=== PATIENT | female | born 1955 | race Caucasian/White ===

== ENCOUNTER 2017-04-21 23:51 | Inpatient (IN) ==
[2017-04-21] MEDS ORDERED: IOPAMIDOL 100 ML BOTTLE IV ONE (23:52)
--- NOTE | 2017-04-22 00:08 | Emergency Department Note ---
Abdominal Pain HPI - General Chief Complaint: Abdominal Pain Stated Complaint: abdominal pain Time Seen by Provider: 04/22/17 00:03 Source: family Mode of arrival: ambulatory Limitations: no limitations - History of Present Illness HPI Narrative: 61-year-old female with a history of lower abdominal pain particular in the suprapubic region to the left. Patient denies any urgency frequency or dysuria however. Been running a slight temperature of 99. Appetite has been normal she has had no history of vomiting or diarrhea or constipation issues though she states she did take a stool softener. Had two loose stools yesterday. Has no history of right lower quadrant pain as had a hysterectomy. has had some nauseA. still has her appendix and gallbladder. pain is diffuse but lower abdomen. no guarding or rebound - Related Data Previous Rx's Medication Instructions Recorded bupropion HCl 75 mg tablet 150 mg PO BID #60 tab 01/20/16 omeprazole 40 mg capsule,delayed 40 mg PO QDAY #30 cap 01/20/16 release hydroxyzine HCl 25 mg tablet 25 mg PO TID-QID PRN #30 tab 07/07/16 meloxicam 7.5 mg tablet 7.5 mg PO QDAY #90 tab 01/19/17 baclofen 20 mg tablet 20 mg PO TID #90 tab 03/17/17 Allergies Allergy/AdvReac Type Severity Reaction Status Date / Time From [facility] AdvReac Severe Anaphylaxis Uncoded 01/31/17 08:58 Review of Systems All systems ED: reviewed and negative except as stated. Constitutional: Denies: fever, chills Eyes: Denies: eye pain ENT ED: Denies: ear pain Cardiovascular: Denies: chest pain Respiratory: Denies: shortness of breath, cough Gastrointestinal: Reports: as per HPI, abdominal pain, nausea. Denies: vomiting , diarrhea, constipation, hematochezia, melena, hematemesis, acid reflux Genitourinary: Reports: as per HPI. Denies: dysuria, urgency, frequency, hematuria Abdominal Pain PMH - Past Medical History Medical history: Reports: hyperlipidemia Surgical history ED: Reports: herniorrhaphy, ELVIRA/BSO, other (Couple tunnel) - Social History Smoking status: Current every day smoker Alcohol use: Reports: None Drug use: Reports: none Physical Exam Limitations: no limitations General appearance: alert, anxious Head: atraumatic, normocephalic Eye: Present: normal appearance, PERRL ENT: normal exam, normal oropharynx, mucous membranes moist Neck: Present: normal inspection, full ROM, trachea midline Chest: Present: normal inspection, symmetric chest wall rise. Absent: tenderness Respiratory: Present: normal lung sounds bilaterally. Absent: respiratory distress, wheezes, stridor Cardiovascular: Present: regular rate, normal rhythm. Absent: bradycardia, tachycardia Abdominal: Present: soft, tenderness, normal bowel sounds. Absent: distention, guarding, rebound, rigidity Abdominal tenderness: Present: LLQ, suprapubic Rectal: Present: normal rectal tone Extremities: Present: normal inspection, full ROM. Absent: tenderness Back: Present: normal inspection, full ROM. Absent: tenderness Neurological: Present: alert, oriented X3, CN II-XII intact Psychiatric: Present: normal affect, normal mood Course Vital Signs Temperature 99.5 F H 04/21/17 23:51 Pulse Rate 113 H 04/21/17 23:51 Respiratory Rate 19 04/21/17 23:51 Blood Pressure 109/84 04/21/17 23:51 Pulse Oximetry (%) 96 04/21/17 23:51 Temperature 99.5 F H 04/21/17 23:51 Pulse Rate 82 04/22/17 01:01 Respiratory Rate 19 04/21/17 23:51 Blood Pressure 108/72 04/22/17 01:01 Pulse Oximetry (%) 95 04/22/17 01:01 Abdominal Pain - MDM Narrative Medical decision making narrative: temp 99.5, wbc elevaed 12,100, 72 seg 2 bands.. ua does show 17 wbc. elevaed liver funstion test 0.5, bilirubin 1.5 AST 69, ALT 85, alk phosphatase 151 T of the abdomen reveals contained perforated loop of small bowel left lower quadrant with associated abscess measuring 3 cm uncomplicated colonic diverticuli Domenic contacted patient to be started on Zosyn and Flagyl and admitted to Dr. Sheth's service to be kept n.p.o. - Lab Data Result diagrams: 04/22/17 00:16 04/22/17 00:16 Lab Results 04/22/17 04/22/17 04/22/17 Range/Units 00:06 00:16 00:16 WBC 12.1 H (4.5-11.0) K/mcL RBC 4.23 (4.00-5.20) M/mcL Hgb 13.4 (12.0-15.0) g/dL Hct 39.3 (36.0-48.0) % MCV 92.9 (80.0-100.0) fL MCH 31.6 (26.0-34.0) pg MCHC 34.1 (31.0-36.0) g/dL RDW 12.7 (11.5-14.5) % Plt Count 228 (140-440) K/mcL MPV 9.4 (7.4-10.4) fL Total Counted 100 Seg Neutrophils % 72 (38-78) % Band Neutrophils % 1 (0-10) % Lymphocytes % 20 (15-49) % Monocytes % (Manual) 7 (1-12) % Platelet Estimate Normal (NORMAL) RBC Morphology Normal (NORMAL) Sodium 137 (133-145) mmol/L Potassium 3.7 (3.3-5.1) mmol/L Chloride 99 (96-108) mmol/L Carbon Dioxide 22 (22-30) mmol/L Anion Gap 16.0 (8-16) BUN 16 (8-23) mg/dl Creatinine 0.5 L (0.6-1.1) mg/dl GFR Calculation 104 Glucose 121 H (70-105) mg/dL Calcium 8.8 (8.6-10.4) mg/dl Total Bilirubin 1.5 H (0.0-1.0) mg/dL AST 69 H (0-37) U/l ALT 85 H (0-40) U/l Alkaline Phosphatase 151 H (39-117) U/L Total Protein 7.2 (5.9-8.4) gm/dL Albumin 3.9 (3.2-5.2) gm/dL Globulin 3.3 (2.2-3.7) gm/dL Albumin/Globulin Ratio 1.2 (1.0-2.3) Lipase 39 (7-60) U/L Urine Color [place] Urine Appearance Hazy Urine pH 6.0 (5.0-9.0) Ur Specific [place] 1.024 (1.000-1.035) Urine Protein 30 A (NEG) mg/dL Urine Glucose (UA) Negative (NEG) mg/dL Urine Ketones 20 A (NEG) mg/dL Urine Occult Blood 0.2 A (<0.03) mg/dL Urine Nitrate Neg (NEG) Urine Bilirubin 2.0 A (NEG) mg/dL Urine Ictotest Pos A (NEG) Urine Urobilinogen 4.0 A (NEG) mg/dL Ur Leukocyte Esterase 75 A (NEG) /uL Urine RBC 7 H (0-1) /hpf Urine WBC 19 H (0-4) /hpf Ur Squamous Epith Cells 5 H (0-4) /hpf Urine Bacteria Many A (0) /hpf Urine Mucus Many A (0) /hpf Ur Culture Indicated? No Disposition Pt seen by INSTRUMENT INSTALLER/PA only: No Clinical Impression: Diverticulitis of small intestine with perforation and abscess Qualifiers: Diverticulitis bleeding: without bleeding Qualified Code(s): K57.00 - Diverticulitis of small intestine with perforation and abscess without bleeding Disposition: Xfer As Inpt ([facility]) Condition: Serious Referrals: Michelle Otto DO [Primary Care Provider] - Time of Disposition: 03:21
[2017-04-22 00:58] LABS: Mean Cell Volume 92.9 fL (80.0-100.0); Mean Corpuscular HGB Conc 34.1 g/dL (31.0-36.0); Mean Corpuscular Hemoglobin 31.6 pg (26.0-34.0); Platelet Count 228 K/mcL (140-440); RBC 4.23 M/mcL (4.00-5.20); Red Cell Distribution Width 12.7 % (11.5-14.5)
[2017-04-22 01:07] LABS: Appearance,Urine HAZY; Bacteria,Urine MANY /hpf (0); Color,Urine ORANGE; Glucose,Urine (UA) NEGATIVE (NEG); Leukocyte Esterase,Urine 75 /uL (NEG); Mucus,Urine MANY /hpf (0); Nitrate,Urine NEG (NEG); Protein,Urine 30 mg/dL (NEG); Specific Gravity,Urine 1.024 (1.000-1.035); Urine Blood 0.2 mg/dL (<0.03); Urine RBC 7 /hpf (0-1); Urine Squamous Epithelial Cell 5 /hpf (0-4); Urine WBC 19 /hpf (0-4)
[2017-04-22 01:08] LABS: Ictotest,Urine POS (NEG)
[2017-04-22 01:10] LABS: ALT/SGPT 85 U/l (0-40); Albumin 3.9 gm/dL (3.2-5.2); Albumin/Globulin Ratio 1.2 (1.0-2.3); Alkaline Phosphatase 151 U/L (39-117); Blood Urea Nitrogen 16 mg/dl (8-23); Lipase 39 U/L (7-60)
[2017-04-22 01:59] LABS: Band Neutrophils % 1 % (0-10); Lymphocytes % 20 % (15-49); Monocytes % (Manual) 7 % (1-12); Platelet Estimate NORMAL (NORMAL); RBC Morphology NORMAL (NORMAL); Segmented Neutrophils % 72 % (38-78)
[2017-04-22] MEDS ORDERED: PIPERACILLIN SODIUM/TAZOBACTAM 3.375 GM in DEXTROSE 5% IN WATER 50 ML IV ONE (02:52)
[2017-04-22] MEDS ORDERED: cefTRIAXone 1 GM VIAL IV ONE (02:52)
[2017-04-22] MEDS ORDERED: ONDANSETRON 4 MG/2 ML VIAL IV ONE (02:53)
[2017-04-22] MEDS ORDERED: HYDROmorphone 2 MG/ML SYRINGE IV PRN (02:53)
[2017-04-22] MEDS ORDERED: metroNIDAZOLE 500 MG/100 ML BAG IV ONE (03:01)
[2017-04-22] MEDS ORDERED: PIPERACILLIN SODIUM/TAZOBACTAM 3.375 GM VIAL IV ONE (03:10)
[2017-04-22] MEDS ORDERED: ONDANSETRON 4 MG/2 ML VIAL IV PRN (03:23)
[2017-04-22] MEDS: 0.9 % SODIUM CHLORIDE 1,000 ML IV SCH ×2 (04:03→13:04)
[2017-04-22 04:52] LABS: Hepatitis A Antibody IgM NON REACTIVE (NEGATIVE); Hepatitis B Core IgM NON REACTIVE (NEGATIVE); Hepatitis B Surface Antigen NEGATIVE (NEGATIVE); Hepatitis C Virus Antibody NON REACTIVE (NEGATIVE)
[2017-04-22] MEDS: HYDROmorphone 2 MG/ML SYRINGE IV PRN ×3 (07:03→23:12)
--- NOTE | 2017-04-22 08:34 | Cat Scan Report ---
CLINICAL INFORMATION: Abdominal pain and distention COMPARISON: None. TECHNIQUE: Following enteric contrast, 80 cc of Isovue-300 were injected intravenously, and 60 seconds later, 0.625 mm helical slices were obtained from the mid heart through the subtrochanteric regions. Following reconstruction, 2.5 mm sagittal, coronal and axial reformatted images were processed and reviewed at bone, lung and soft tissue windows. Five minutes later, 0.625 mm helical slices were obtained from the mid heart through the kidneys and viewed at soft tissue windows.The exam was performed using radiation dose optimization techniques including, but not limited to, automated exposure control, adjustment of the mA and/or kV according to patient size and use Images should the pelvis show hysterectomy changes Of iterative reconstruction technique. FINDINGS: Lung bases are clear. There are no effusions. The visualized heart is grossly normal. Images through the abdomen show minimal fatty change within the liver. There is a 14 mm vague low-attenuation lesion in the anterior segment of the right hepatic lobe (image 29) on the portal venous phase which becomes isointense on five minute delayed images. Findings are compatible with a benign hemangioma. No significant focal hepatic lesion. The gallbladder and bile ducts, both kidneys, adrenal glands, spleen, pancreas and aorta including aortic branches are normal in size, configuration and attenuation without focal lesion. Images through the pelvis show hysterectomy/oophorectomy changes. Urinary bladder is normal. There is a 4 cm abscess in the right false pelvis resulting from a focal perforation of a distal small bowel loop. It contains fluid and gas with mild surrounding inflammation. No foreign body identified. The remainder of the small bowel, appendix and colon are unremarkable with exception of a few sigmoid diverticuli. Bone windows show no osseous abnormality. IMPRESSION: 1. 4 cm abscess resulting from a contained focal perforation of a distal small bowel loop in the left false pelvis. Suggest: CT-guided percutaneous drain placement as part of " cool down " therapy prior to surgery 2. 14 mm benign hemangioma - right hepatic lobe Interpreted and Authenticated by: Raj Lang 04/22/17
--- NOTE | 2017-04-22 11:15 | General Surg History&Physical ---
History of Present Illness Patient information: Note initiated : 04/22/17 at 11:10 am Service Date, if different from initiated Date: [] Patient: Stephanie Potter a 61 y/o F admitted on 04/22/17 for abdominal pain. Chief Complaint: [Chronic lower abdominal pain and epigastric pain with dark urine and elevated LFTs] HPI: Ms. Potter is a 61 year old F who presents to the emergency room with a 5 day history of lower abdominal pain. The pain was gradual in onset and increased in intensity. It was diffusely in the entire lower abdomen and hypogastric region. She had increasing gas pains with diarrhea. She had chills but denies fever or sweats. She had increasing nausea and vomiting prior to coming to the emergency room. She has not had similar pain. The patient also has noted dark urine over the past 3 days with some epigastric pain early satiety and anorexia. She has not had some specific right upper quadrant pain. Her LFTs are mildly elevated as is her bilirubin. CT of the abdomen shows normal upper abdomen including gallbladder liver however there is a 4.5 cm abscess along the mesenteric border of a loop of small bowel. The abscess contains gas and liquid debris. It does not appear to be contiguous with a loop of colon and the radiologist does not feel that she has diverticulitis.. This is felt to be related to suspected small bowel perforation with abscess formation. The patient does not have any prior history of any type of intestinal disease. Review of Systems - Constitutional anorexia, fatigue, malaise, no weakness, no weight loss - EENT Nose, mouth and throat: headache(s) (Is some medicines stoma working as is is admitted), no dysphagia, no throat swelling, no tongue swelling - Cardiovascular diaphoresis, no chest pain, no edema, no palpatations, no pedal edema, no syncope - Respiratory no cough, no wheezing, no chest congestion - Gastrointestinal abdominal pain, bloating, change in bowel habits, early satiety, fecal incontinence, loose stools, nausea, vomiting, no constipation - Genitourinary Genitourinary: pelvic pain, urinary incontinence, no dysuria - Musculoskeletal arthralgias, joint swelling, myalgias - Integumentary no changing lesions, no new lesions, no pruritus, no rash - Neurological abnormal movements, confusion, convulsions, dizziness, headache(s), weakness, no abnormal gait, no paresthesias, no syncope - Psychiatric anxiety, no depression, no irritability - Endocrine fatigue, no palpitations, no polydipsia, no polyphagia, no polyuria - Hematologic/Lymphatic no easy bleeding, no easy bruising, no lymphadenopathy - Allergic/Immunologic no tongue swelling, no throat swelling, no uticaria, no wheezing, no lip swelling Past History Past medical history: Chronic anxiety disorder History of fecal incontinence Gastroesophageal reflux disease Chronic joint pain Past surgical history: Abdominal hysterectomy Carpal tunnel surgery Past family history: Other history not known Degenerative arthritis Past social history: Unmarried Everyday smoker of cigarettes Denies alcohol use Denies drug use Medications and Allergies Home Medications Medication Instructions Recorded Confirmed Type bupropion HCl 75 mg tablet 150 mg PO BID #60 tab 01/20/16 04/22/17 Rx omeprazole 40 mg capsule,delayed 40 mg PO QDAY #30 cap 01/20/16 04/22/17 Rx release hydroxyzine HCl 25 mg tablet 25 mg PO TID-QID PRN #30 tab 07/07/16 04/22/17 Rx meloxicam 7.5 mg tablet 7.5 mg PO QDAY #90 tab 01/19/17 04/22/17 Rx baclofen 20 mg tablet 20 mg PO TID #90 tab 03/17/17 04/22/17 Rx Allergies Allergy/AdvReac Type Severity Reaction Status Date / Time moxifloxacin [From Avelox] Allergy Severe Anaphylaxis Verified 04/22/17 07:09 Exam Temp Pulse Resp BP Pulse Ox 98.2 F 77 18 93/58 95 04/22/17 07:09 04/22/17 07:09 04/22/17 07:09 04/22/17 07:09 04/22/17 07:09 - General physical appearance well developed, well nourished, no distress - Eyes PERRL, normal ocular movement, icteric - ENT normal pinna, normal nares, normal mucosa, no hearing loss, no congestion, dentures, other (Edentulous) - Head Head exam IM: Present: atraumatic, normal inspection, normocephalic - Neck no masses, no bruits, trachea midline, no lymphadectomy, no venous distension - Cardiovascular Cardiovascular exam IM: Present: normal rate and rhythm, RRR, +S1, +S2. Absent : gallop, JVD - Respiratory normal expansion, normal respiratory effort, clear to percussion, clear to auscultation - Abdomen Abdomen: Present: soft, tender (Mild distention; epigastric and bilateral upper quadrant pain; tenderness with guarding and rebound left lower quadrant and suprapubic area), bowel sounds Hernia: Present: none - Genitourinary Present: normal external genitalia - Rectum Rectum: Present: no hemorrhoids, no tenderness, no masses, no bleeding, other ( Poor anal tone) - Integumentary Present: no rash, no growths, no abnormal pigmentation - Neurologic Present: normal coordination, normal sensation - Musculoskeletal Present: normal gait, normal posture - Psychiatric Present: oriented to time, oriented to person, oriented to place, speech is normal, memory intact Assessment and Plan (1) Perforation of small intestine Antibiotic coverage with Zosyn and Flagyl IV rehydration Probable early operation Status: Acute (2) Left lower quadrant abdominal abscess Status: Acute (3) Epigastric abdominal pain of unknown etiology Upper abdominal ultrasound to evaluate for gallbladder disease Status: Acute (4) Anxiety IV Ativan until oral medications can be restarted Status: Chronic (5) Incontinence of feces Status: Chronic Qualifiers: Fecal incontinence type: unspecified Qualified Code(s): R15.9 - Full incontinence of feces
[2017-04-22] MEDS: metroNIDAZOLE 500 MG/100 ML BAG IV SCH ×2 (11:25→17:28)
--- NOTE | 2017-04-22 11:57 | XRay Report ---
CLINICAL INFORMATION: Preop COMPARISON: None. FINDINGS: The heart size, mediastinum and pulmonary vessels are unremarkable. The lungs are clear. There are no effusions. The bones and soft tissues are within normal limits. IMPRESSION: Normal chest. Interpreted and Authenticated by: Raj Lang 04/22/17
--- NOTE | 2017-04-22 12:13 | Ultrasound Report ---
CLINICAL INFORMATION: Elevated LFTs and bilirubin COMPARISON: Abdominal CT performed earlier in the day 04/22/2017. FINDINGS: Liver is normal in size and diffusely hyperechoic compatible with diffuse fatty change. There is a 14 mm hyperechoic lesion in the right hepatic lobe compatible benign hemangioma - this was also seen on CT. There are two stones in the gallbladder, 1.7 cm and 1.4 cm, respectively. Gallbladder wall is normal thickness - 2 mm. Common bile duct is normal - 4 mm IMPRESSION: 1. Cholelithiasis. Gallbladder and bile ducts are otherwise normal 2. 14 mm hemangioma right hepatic lobe also seen on CT 3. Hyperechoic liver compatible with diffuse fatty change is also seen on CT Interpreted and Authenticated by: Raj Lang 04/22/17
[2017-04-22] MEDS: NICOTINE 21 MG PATCH TOPICAL SCH (13:04)
[2017-04-22] MEDS: PIPERACILLIN SODIUM/TAZOBACTAM 3.375 GM in DEXTROSE 5% IN WATER 50 ML IV SCH ×2 (13:04→19:14)
[2017-04-22] MEDS: PANTOPRAZOLE 40 MG VIAL IV SCH (17:02)
[2017-04-23] MEDS: metroNIDAZOLE 500 MG/100 ML BAG IV SCH ×5 (00:14→18:19)
[2017-04-23] MEDS: 0.9 % SODIUM CHLORIDE 1,000 ML IV SCH ×5 (00:53→22:46)
[2017-04-23] MEDS: PIPERACILLIN SODIUM/TAZOBACTAM 3.375 GM in DEXTROSE 5% IN WATER 50 ML IV SCH ×4 (01:30→19:25)
[2017-04-23 05:28] LABS: Basophils # (Auto) 0 K/mcL (0.0-0.3); Basophils % (Auto) 0.5 % (0.0-2.0); Eosinophils # (Auto) 0.2 K/mcL (0.0-0.7); Eosinophils % (Auto) 3.2 % (0.0-7.0); Granulocytes % (Auto) 56.4 % (38.0-78.0); Lymphocytes # (Auto) 1.8 K/mcL (1.5-4.8); Lymphocytes % (Auto) 32.5 % (15.5-49.0); Mean Cell Volume 93.3 fL (80.0-100.0); Mean Corpuscular HGB Conc 33.9 g/dL (31.0-36.0); Mean Corpuscular Hemoglobin 31.7 pg (26.0-34.0); Monocytes # (Auto) 0.4 K/mcL (0.1-0.9); Monocytes % (Auto) 7.4 % (1.0-12.0); Platelet Count 222 K/mcL (140-440); RBC 3.65 M/mcL (4.00-5.20)
[2017-04-23 05:49] LABS: ALT/SGPT 51 U/l (0-40); Albumin 2.7 gm/dL (3.2-5.2); Albumin/Globulin Ratio 0.9 (1.0-2.3); Alkaline Phosphatase 115 U/L (39-117); Bilirubin,Direct 0.4 mg/dL (0.0-0.3); Blood Urea Nitrogen 17 mg/dl (8-23); Gamma Glutamyl Transpeptidase 144 U/L (5-36); Magnesium 1.8 mg/dL (1.6-2.5); Uric Acid 3.2 mg/dL (2.5-8.0)
[2017-04-23] MEDS: PANTOPRAZOLE 40 MG VIAL IV SCH ×2 (07:10→17:07)
[2017-04-23] MEDS ORDERED: IPRATROPIUM/ALBUTEROL 3 ML AMPUL.NEB NEB ONE (07:34)
[2017-04-23] MEDS ORDERED: fentaNYL 250 MCG/5 ML VIAL IV ONE (07:58)
[2017-04-23] MEDS ORDERED: PHENYLEPHRINE 10 MG/ML VIAL ONE (07:58)
[2017-04-23] MEDS ORDERED: ONDANSETRON 4 MG/2 ML VIAL ONE (07:58)
[2017-04-23] MEDS ORDERED: DEXAMETHASONE 10 MG/ML VIAL ONE (07:58)
[2017-04-23] MEDS ORDERED: ROCURONIUM 10 MG/ML ML IV ONE (07:58)
[2017-04-23] MEDS ORDERED: NEOSTIGMINE 1 MG/ML VIAL IV ONE (07:58)
[2017-04-23] MEDS ORDERED: PROPOFOL 200 MG/20 ML VIAL IV ONE (07:58)
[2017-04-23] MEDS ORDERED: GLYCOPYRROLATE 0.2 MG/ML VIAL IV ONE (07:58)
[2017-04-23] MEDS ORDERED: LIDOCAINE HCL/PF 100 MG/5 ML SYRINGE IV ONE (07:58)
[2017-04-23] MEDS ORDERED: MIDAZOLAM 2 MG/2 ML VIAL ONE (07:58)
[2017-04-23] MEDS ORDERED: SUCCINYLCHOLINE 20 MG/ML ML IV ONE (07:58)
[2017-04-23] MEDS ORDERED: ALBUMIN HUMAN 12.5 GM/50 ML BAG IV ONE (08:00)
[2017-04-23] MEDS ORDERED: FLU VACC QS2017-18 36MOS UP/PF 60 MCG/0.5 ML SYRINGE IM ONE (10:00)
[2017-04-23] MEDS ORDERED: NICOTINE 21 MG PATCH TOPICAL SCH (10:00)
[2017-04-23] MEDS ORDERED: diphenhydrAMINE 50 MG/ML VIAL IV PRN (10:01)
[2017-04-23] MEDS ORDERED: NALOXONE HCL 0.4 MG/ML VIAL IV PRN (10:01)
[2017-04-23] MEDS ORDERED: IPRATROPIUM/ALBUTEROL 3 ML AMPUL.NEB NEB PRN (10:01)
[2017-04-23] MEDS ORDERED: PROMETHAZINE 25 MG/ML VIAL IV PRN (10:01)
[2017-04-23] MEDS ORDERED: METOPROLOL TARTRATE 5 MG/5 ML VIAL IV PRN (10:01)
[2017-04-23] MEDS ORDERED: ONDANSETRON 4 MG/2 ML VIAL IV PRN (10:01)
[2017-04-23] MEDS ORDERED: FLUMAZENIL 0.1 MG/ML ML IV PRN (10:01)
[2017-04-23] MEDS ORDERED: ATROPINE SULFATE 0.4 MG/ML VIAL IV PRN (10:01)
[2017-04-23] MEDS ORDERED: MEPERIDINE 25 MG/ML SYRINGE IV PRN (10:01)
[2017-04-23] MEDS ORDERED: ePHEDrine 50 MG/ML AMPUL IV PRN (10:01)
[2017-04-23] MEDS ORDERED: METHOCARBAMOL 1,000 MG/10 ML VIAL IV PRN (10:01)
[2017-04-23] MEDS ORDERED: HYDROmorphone 2 MG/ML SYRINGE IV PRN (10:01)
[2017-04-23] MEDS ORDERED: LACTATED RINGERS 1,000 ML IV SCH (10:15)
--- NOTE | 2017-04-23 10:52 | Brief Operative Note ---
Date of procedure: 04/23/17 Pre-op diagnosis: cholelithiasis with cholecystitis; small bowel perforation with abscess Post-op diagnosis: other (cholelithiasis with cholecystitis;necrosis of mesenteric border of small bowel with perforation and cintained interloop abscess) Procedure: laparoscopic cholecystectomy diagnostic pelvic laparoscopy open laparotomy with small bowel resection Grafts/Implants: No Anesthesia: GETA Findings: acute and chronic cholecystitis;large perforation of single loop of mid small bowel with contained interloop abscess Complications: none Surgeon: Eamon Sheth Estimated blood loss (cc): 20 Specimens Removed/Pathology: other (gallbladder; small bowel segment) Condition: stable Disposition: PACU
[2017-04-23] MEDS ORDERED: LORazepam 2 MG/ML VIAL IV PRN (11:03)
[2017-04-23] MEDS: fentaNYL 100 MCG/2 ML VIAL IV PRN ×4 (11:12→11:33)
[2017-04-23] MEDS ORDERED: ACETAMINOPHEN 1,000 MG/100 ML BOTTLE IV SCH (12:00)
[2017-04-23] MEDS: HYDROmorphone 2 MG/ML SYRINGE IV PRN ×5 (12:15→22:21)
[2017-04-23] MEDS: NICOTINE 21 MG PATCH TOPICAL SCH (13:56)
[2017-04-23] MEDS: ACETAMINOPHEN 1,000 MG/100 ML BOTTLE IV SCH (17:07)
[2017-04-24] MEDS: ACETAMINOPHEN 1,000 MG/100 ML BOTTLE IV SCH ×5 (00:10→23:23)
[2017-04-24] MEDS: PIPERACILLIN SODIUM/TAZOBACTAM 3.375 GM in DEXTROSE 5% IN WATER 50 ML IV SCH ×4 (01:16→20:04)
[2017-04-24] MEDS: 0.9 % SODIUM CHLORIDE 1,000 ML IV SCH ×4 (02:33→20:05)
[2017-04-24] MEDS: HYDROmorphone 2 MG/ML SYRINGE IV PRN ×3 (04:33→17:07)
[2017-04-24] MEDS: ONDANSETRON 4 MG/2 ML VIAL IV PRN ×2 (04:44→17:06)
[2017-04-24 05:25] LABS: Basophils # (Auto) 0 K/mcL (0.0-0.3); Basophils % (Auto) 0 % (0.0-2.0); Eosinophils # (Auto) 0 K/mcL (0.0-0.7); Eosinophils % (Auto) 0.4 % (0.0-7.0); Granulocytes % (Auto) 82.8 % (38.0-78.0); Lymphocytes # (Auto) 1.3 K/mcL (1.5-4.8); Lymphocytes % (Auto) 11.2 % (15.5-49.0); Mean Cell Volume 94.1 fL (80.0-100.0); Monocytes # (Auto) 0.7 K/mcL (0.1-0.9); Monocytes % (Auto) 5.6 % (1.0-12.0); Platelet Count 253 K/mcL (140-440); RBC 3.77 M/mcL (4.00-5.20); Red Cell Distribution Width 13.1 % (11.5-14.5)
[2017-04-24] MEDS: metroNIDAZOLE 500 MG/100 ML BAG IV SCH ×5 (05:51→23:23)
[2017-04-24 05:52] LABS: ALT/SGPT 43 U/l (0-40); Albumin/Globulin Ratio 1.1 (1.0-2.3); Alkaline Phosphatase 98 U/L (39-117); Bilirubin,Direct 0.3 mg/dL (0.0-0.3); Blood Urea Nitrogen 8 mg/dl (8-23); Gamma Glutamyl Transpeptidase 133 U/L (5-36); Magnesium 1.7 mg/dL (1.6-2.5); Uric Acid 2.7 mg/dL (2.5-8.0)
[2017-04-24] MEDS: PANTOPRAZOLE 40 MG VIAL IV SCH ×2 (07:55→17:22)
--- NOTE | 2017-04-24 17:12 | General Surgery Progress Note ---
Subjective Patient reports: feels better, pain is less, flatus, no bowel movement, afebrile Narrative: Note initiated : 04/24/17 at 5:10 pm Service Date, if different from initiated Date: [] Patient: Stephanie Potter 61 y/o F admitted on 04/22/17 for Abdominal Pain/ Perforation of Small Intestine. Chief Complaint: [ patient is doing well. She denies nausea. She states that she has had flatus. She is afebrile. Her white blood count is 11.] Objective Temp Pulse Resp BP Pulse Ox 97.5 F 62 16 122/75 92 04/24/17 15:44 04/24/17 07:29 04/24/17 15:44 04/24/17 15:44 04/24/17 15:44 - Additional Data Intake & Output - Last 24 hours: Intake & Output 04/22/17 04/23/17 04/24/17 04/25/17 05:59 05:59 05:59 05:59 Intake Total 100 / 100 2577 / 2577 1800 / 1800 [id number] Output Total 250 / 250 550 / 550 2100 / 2100 Balance -150 / -150 2026 -300 / -300 1829 Weight 144 lb 144 lb 144 lb - General physical appearance well developed, well nourished, no distress, severe distress, moderate pain - Eyes PERRL, normal ocular movement - ENT normal pinna, normal nares, normal mucosa, no hearing loss, no congestion - Neck no masses, no bruits, trachea midline, no lymphadectomy, no venous distension - Respiratory normal expansion, normal respiratory effort, clear to percussion, clear to auscultation - Cardiovascular Cardiovascular exam: Present: normal rate and rhythm, RRR, +S1, +S2. Absent: JVD - Abdomen tender, surgical scars (Surgical incisions are unremarkable; she has mild tenderness of her lower abdomen; good active bowel sounds) - Integumentary no rash, no growths, no abnormal pigmentation - Neurologic normal coordination, normal sensation - Musculoskeletal normal gait, normal posture - Psychiatric oriented to time, oriented to person, oriented to place, speech is normal, memory intact - Labs 04/24/17 04:27 04/24/17 04:27 Diabetes panel 04/24/17 Range/Units 04:27 Sodium 141 (133-145) mmol/L Potassium 3.9 (3.3-5.1) mmol/L Chloride 105 (96-108) mmol/L Carbon Dioxide 22 (22-30) mmol/L BUN 8 (8-23) mg/dl Creatinine 0.4 L (0.6-1.1) mg/dl Glucose 93 (70-105) mg/dL Calcium 8.2 L (8.6-10.4) mg/dl AST 34 (0-37) U/l ALT 43 H (0-40) U/l Alkaline Phosphatase 98 (39-117) U/L Total Protein 5.8 L (5.9-8.4) gm/dL Albumin 3.0 L (3.2-5.2) gm/dL Triglycerides 45 (<150) mg/dl Calcium panel 04/24/17 Range/Units 04:27 Calcium 8.2 L (8.6-10.4) mg/dl Phosphorus 3.4 (2.7-4.5) mg/dL Albumin 3.0 L (3.2-5.2) gm/dL Pituitary panel 04/24/17 Range/Units 04:27 Sodium 141 (133-145) mmol/L Potassium 3.9 (3.3-5.1) mmol/L Chloride 105 (96-108) mmol/L Carbon Dioxide 22 (22-30) mmol/L BUN 8 (8-23) mg/dl Creatinine 0.4 L (0.6-1.1) mg/dl Glucose 93 (70-105) mg/dL Calcium 8.2 L (8.6-10.4) mg/dl Adrenal panel 04/24/17 Range/Units 04:27 Sodium 141 (133-145) mmol/L Potassium 3.9 (3.3-5.1) mmol/L Chloride 105 (96-108) mmol/L Carbon Dioxide 22 (22-30) mmol/L BUN 8 (8-23) mg/dl Creatinine 0.4 L (0.6-1.1) mg/dl Glucose 93 (70-105) mg/dL Calcium 8.2 L (8.6-10.4) mg/dl Total Bilirubin 0.6 (0.0-1.0) mg/dL AST 34 (0-37) U/l ALT 43 H (0-40) U/l Alkaline Phosphatase 98 (39-117) U/L Total Protein 5.8 L (5.9-8.4) gm/dL Albumin 3.0 L (3.2-5.2) gm/dL Assessment and Plan (1) Perforation of small intestine Status: Acute Assessment and plan: We will continue present therapy Nasogastric tube to be continued until to protect her anastomosis Current Visit: Yes (2) Anxiety Status: Chronic Current Visit: No (3) Incontinence of feces Status: Chronic Current Visit: No (4) Cholelithiasis and acute cholecystitis without obstruction Status: Acute Current Visit: Yes - Time Spent With Patient Total time spent is greater than 50% in coordination of care (as documented) at patient's floor/unit and/or counseling patient:
[2017-04-25] MEDS: PIPERACILLIN SODIUM/TAZOBACTAM 3.375 GM in DEXTROSE 5% IN WATER 50 ML IV SCH ×4 (01:16→20:00)
[2017-04-25] MEDS: 0.9 % SODIUM CHLORIDE 1,000 ML IV SCH ×2 (05:14→13:47)
[2017-04-25] MEDS: ACETAMINOPHEN 1,000 MG/100 ML BOTTLE IV SCH ×3 (05:18→18:52)
[2017-04-25] MEDS: HYDROmorphone 2 MG/ML SYRINGE IV PRN (05:28)
[2017-04-25] MEDS: ONDANSETRON 4 MG/2 ML VIAL IV PRN (05:30)
[2017-04-25 05:56] LABS: Basophils # (Auto) 0 K/mcL (0.0-0.3); Basophils % (Auto) 0.3 % (0.0-2.0); Eosinophils # (Auto) 0.1 K/mcL (0.0-0.7); Eosinophils % (Auto) 1.1 % (0.0-7.0); Granulocytes % (Auto) 74.5 % (38.0-78.0); Lymphocytes # (Auto) 1.9 K/mcL (1.5-4.8); Mean Cell Volume 93.8 fL (80.0-100.0); Mean Corpuscular HGB Conc 33.5 g/dL (31.0-36.0); Mean Corpuscular Hemoglobin 31.5 pg (26.0-34.0); Monocytes # (Auto) 0.4 K/mcL (0.1-0.9); Monocytes % (Auto) 4.1 % (1.0-12.0); Platelet Count 250 K/mcL (140-440); RBC 3.78 M/mcL (4.00-5.20); Red Cell Distribution Width 12.8 % (11.5-14.5)
[2017-04-25 06:09] LABS: ALT/SGPT 38 U/l (0-40); Albumin 2.6 gm/dL (3.2-5.2); Albumin/Globulin Ratio 0.9 (1.0-2.3); Alkaline Phosphatase 87 U/L (39-117); Bilirubin,Direct < 0.2 mg/dL (0.0-0.3); Blood Urea Nitrogen 7 mg/dl (8-23); Gamma Glutamyl Transpeptidase 113 U/L (5-36); Magnesium 1.7 mg/dL (1.6-2.5); Uric Acid 3.9 mg/dL (2.5-8.0)
[2017-04-25] MEDS: metroNIDAZOLE 500 MG/100 ML BAG IV SCH ×3 (06:15→16:41)
[2017-04-25] MEDS: PANTOPRAZOLE 40 MG VIAL IV SCH ×2 (08:27→16:41)
--- NOTE | 2017-04-25 15:48 | General Surgery Progress Note ---
Subjective Patient reports: feels better, pain is less, no flatus, no bowel movement, afebrile (Patient continues to improve) Narrative: Note initiated : 04/25/17 at 3:45 pm Service Date, if different from initiated Date: [] Patient: Stephanie Potter 61 y/o F admitted on 04/22/17 for Abdominal Pain/ Perforation of Small Intestine. Chief Complaint: [Patient continues to improve. She did not have any flatus today. She has not had nausea. There is no increased abdominal distention.] Objective Temp Pulse Resp BP Pulse Ox 97.7 F 70 16 116/59 90 04/25/17 12:00 04/25/17 12:00 04/25/17 12:00 04/25/17 12:00 04/25/17 12:00 - Additional Data Intake & Output - Last 24 hours: Intake & Output 04/23/17 04/24/17 04/25/17 04/26/17 05:59 05:59 05:59 05:59 Intake Total 2577 / 2577 1800 / 1800 3168 / 3168 1550 / 1550 Output Total 550 / 550 2100 / 2100 2650 / 2650 Balance 2026 / 2026 -300 / -300 518 / 518 1550 / 1550 Weight 144 lb 146 lb - General physical appearance well developed, well nourished, no distress, moderate pain - Eyes PERRL, normal ocular movement - ENT normal pinna, normal nares, normal mucosa, no hearing loss, no congestion - Neck no masses, no bruits, trachea midline, no lymphadectomy, no venous distension - Respiratory normal expansion, normal respiratory effort, clear to percussion, clear to auscultation - Cardiovascular Cardiovascular exam: Present: normal rate and rhythm, RRR, +S1, +S2. Absent: gallop, JVD, systolic murmur - Abdomen tender (Mild incisional tenderness otherwise abdominal exam is benign; she has hypoactive bowel sounds), surgical scars (none) - Integumentary no rash, no growths, no abnormal pigmentation - Neurologic normal coordination, normal sensation - Musculoskeletal normal gait, normal posture - Psychiatric oriented to time, oriented to person, oriented to place, speech is normal, memory intact - Labs 04/25/17 04:05 04/25/17 04:05 Diabetes panel 04/25/17 Range/Units 04:05 Sodium 140 (133-145) mmol/L Potassium 3.5 (3.3-5.1) mmol/L Chloride 104 (96-108) mmol/L Carbon Dioxide 19 L (22-30) mmol/L BUN 7 L (8-23) mg/dl Creatinine 0.5 L (0.6-1.1) mg/dl Glucose 63 L (70-105) mg/dL Calcium 7.9 L (8.6-10.4) mg/dl AST 46 H (0-37) U/l ALT 38 (0-40) U/l Alkaline Phosphatase 87 (39-117) U/L Total Protein 5.5 L (5.9-8.4) gm/dL Albumin 2.6 L (3.2-5.2) gm/dL Triglycerides 70 (<150) mg/dl Calcium panel 04/25/17 Range/Units 04:05 Calcium 7.9 L (8.6-10.4) mg/dl Phosphorus 2.1 L (2.7-4.5) mg/dL Albumin 2.6 L (3.2-5.2) gm/dL Pituitary panel 04/25/17 Range/Units 04:05 Sodium 140 (133-145) mmol/L Potassium 3.5 (3.3-5.1) mmol/L Chloride 104 (96-108) mmol/L Carbon Dioxide 19 L (22-30) mmol/L BUN 7 L (8-23) mg/dl Creatinine 0.5 L (0.6-1.1) mg/dl Glucose 63 L (70-105) mg/dL Calcium 7.9 L (8.6-10.4) mg/dl Adrenal panel 04/25/17 Range/Units 04:05 Sodium 140 (133-145) mmol/L Potassium 3.5 (3.3-5.1) mmol/L Chloride 104 (96-108) mmol/L Carbon Dioxide 19 L (22-30) mmol/L BUN 7 L (8-23) mg/dl Creatinine 0.5 L (0.6-1.1) mg/dl Glucose 63 L (70-105) mg/dL Calcium 7.9 L (8.6-10.4) mg/dl Total Bilirubin 0.4 (0.0-1.0) mg/dL AST 46 H (0-37) U/l ALT 38 (0-40) U/l Alkaline Phosphatase 87 (39-117) U/L Total Protein 5.5 L (5.9-8.4) gm/dL Albumin 2.6 L (3.2-5.2) gm/dL Assessment and Plan (1) Perforation of small intestine Status: Acute Assessment and plan: We will continue present therapy Nasogastric tube to be continued until to protect her anastomosis Current Visit: Yes (2) Anxiety Status: Chronic Current Visit: No (3) Incontinence of feces Status: Chronic Current Visit: No (4) Cholelithiasis and acute cholecystitis without obstruction Status: Acute Current Visit: Yes - Time Spent With Patient Total time spent is greater than 50% in coordination of care (as documented) at patient's floor/unit and/or counseling patient:
[2017-04-25] MEDS: LORazepam 2 MG/ML VIAL IV PRN (19:50)
[2017-04-26] MEDS: PIPERACILLIN SODIUM/TAZOBACTAM 3.375 GM in DEXTROSE 5% IN WATER 50 ML IV SCH ×4 (00:33→20:08)
[2017-04-26] MEDS: metroNIDAZOLE 500 MG/100 ML BAG IV SCH ×4 (00:33→16:52)
[2017-04-26] MEDS: ACETAMINOPHEN 1,000 MG/100 ML BOTTLE IV SCH ×5 (00:34→23:14)
[2017-04-26] MEDS: 0.9 % SODIUM CHLORIDE 1,000 ML IV SCH ×3 (05:38→22:42)
[2017-04-26] MEDS: ONDANSETRON 4 MG/2 ML VIAL IV PRN (06:45)
[2017-04-26 06:49] LABS: Basophils # (Auto) 0 K/mcL (0.0-0.3); Basophils % (Auto) 0.4 % (0.0-2.0); Eosinophils # (Auto) 0.2 K/mcL (0.0-0.7); Eosinophils % (Auto) 2.7 % (0.0-7.0); Granulocytes % (Auto) 72.9 % (38.0-78.0); Lymphocytes # (Auto) 1.8 K/mcL (1.5-4.8); Lymphocytes % (Auto) 20.2 % (15.5-49.0); Mean Cell Volume 93.4 fL (80.0-100.0); Mean Corpuscular HGB Conc 34.6 g/dL (31.0-36.0); Mean Corpuscular Hemoglobin 32.3 pg (26.0-34.0); Monocytes # (Auto) 0.3 K/mcL (0.1-0.9); Monocytes % (Auto) 3.8 % (1.0-12.0); Platelet Count 291 K/mcL (140-440); RBC 3.82 M/mcL (4.00-5.20)
[2017-04-26 07:58] LABS: ALT/SGPT 39 U/l (0-40); Albumin 2.8 gm/dL (3.2-5.2); Alkaline Phosphatase 98 U/L (39-117); Bilirubin,Direct < 0.2 mg/dL (0.0-0.3); Blood Urea Nitrogen 7 mg/dl (8-23); Gamma Glutamyl Transpeptidase 118 U/L (5-36); Magnesium 1.7 mg/dL (1.6-2.5); Uric Acid 5.2 mg/dL (2.5-8.0)
[2017-04-26] MEDS: PANTOPRAZOLE 40 MG VIAL IV SCH ×3 (08:00→16:52)
--- NOTE | 2017-04-26 11:17 | Surgical Pathology Report ---
HISTOLOGY SPECIMEN MICROSCOPIC DIAGNOSIS SPECIMEN A - GALLBLADDER, CHOLECYSTECTOMY: -- SUBACUTE AND CHRONIC CHOLECYSTITIS WITH CHOLELITHIASIS. SPECIMEN B - SMALL BOWEL, SEGMENTAL RESECTION: -- FOCAL INTESTINAL PERFORATION WITH SEVERE ACUTE/CHRONIC INFLAMMATION, HEMORRHAGE, FIBROSIS, GRANULATION TISSUE, FAT NECROSIS AND ACUTE PERITONITIS. -- NO NEOPLASIA OR MALIGNANCY IDENTIFIED. -- SURGICAL MARGINS APPEAR VIABLE. (TAMMI:tanya) PROCEDURAL IMPRESSION Perforation of small intestine left lower quadrant; abdominal abscess; acute and chronic cholecystitis with cholelithiasis. GROSS DESCRIPTION Specimen A: Received in formalin labeled "A", is a 6.2 x 2.5 x 2.0 cm green-ochoa gallbladder. The serosal surface is smooth and glistening. There is a 0.4 cm in diameter opening on the hepatic bed. There are multiple metal clips present, including one on the duct. The lumen contains viscous, sticky dark green fluid and yellow sludge-like material. Also within the lumen are multiple yellow rough surfaced stone fragments ranging in size from less than 0.1 to 1.5 cm in greatest dimension. The mucosa is green-ochoa and velvety. The wall is up to 0.2 cm thick. No gross lesions are identified. Therapy Technician sections submitted - one cassette. (STM:sln) Specimen B: Received in formalin labeled with the patient information, is a ochoa segment of colon with ochoa attached fat. It has two stapled margins. It is 7.0 cm in length with an average diameter of 2.5 cm. Approximately 2.1 from one stapled margin is an area of possible perforation and some ochoa possible exudate. This margin is inked black. The serosa is ochoa. The mucosa is ochoa with a normal plicated pattern. Approximately 2.0 cm from the inked margin corresponding with the area of ochoa exudate, there is a possible perforation. Sectioning reveals a 1.8 x 2.0 cm cavity corresponding to the possible perforation. Grossly there are no candidate lymph nodes identified. Therapy Technician sections submitted - four cassettes: B1 - margins; B2-B3 - full cross section of area of possible perforation bisected; B4 - random sections. (MARINB:tanya) Electronically Signed by: Mike Lee M.D.
--- NOTE | 2017-04-26 13:55 | General Surgery Progress Note ---
Subjective Patient reports: feels better, pain is less, flatus, bowel movement, afebrile Narrative: Note initiated : 04/26/17 at 1:53 pm Service Date, if different from initiated Date: [] Patient: Stephanie Potter 61 y/o F admitted on 04/22/17 for Abdominal Pain/ Perforation of Small Intestine. Chief Complaint: [Patient is doing much better. She had large amount of flatus last evening and today. She does not complain of any nausea and she does not have abdominal distention.] Objective Temp Pulse Resp BP Pulse Ox 97.4 F 71 18 108/70 92 04/26/17 07:49 04/26/17 07:49 04/26/17 07:49 04/26/17 07:49 04/26/17 07:49 - Additional Data Intake & Output - Last 24 hours: Intake & Output 04/24/17 04/25/17 04/26/17 04/27/17 05:59 05:59 05:59 05:59 Intake Total 1800 / 1800 3168 / 3168 3150 / 3150 350 / 350 Output Total 2100 / 2100 2650 / 2650 2850 / 2850 Balance -300 / -300 518 / 518 300 / 300 350 / 350 Weight 146 lb 148 lb 8 oz - General physical appearance well developed, well nourished, no distress, severe distress - Eyes PERRL, normal ocular movement - ENT no congestion - Neck no venous distension - Respiratory normal expansion, normal respiratory effort, clear to auscultation - Cardiovascular Cardiovascular exam: Present: normal rate and rhythm, RRR, +S1, +S2. Absent: gallop, JVD, tachycardia - Abdomen tender (Mild tenderness along incision; good active bowel sounds ; ), bowel sounds (present), surgical scars (none), masses (none) - Integumentary no rash, no growths, no abnormal pigmentation - Neurologic normal coordination, normal sensation - Musculoskeletal normal gait, normal posture - Psychiatric oriented to time, oriented to person, oriented to place, speech is normal, memory intact - Labs 04/26/17 04:10 04/26/17 04:10 Diabetes panel 04/26/17 Range/Units 04:10 Sodium 143 (133-145) mmol/L Potassium 3.0 L (3.3-5.1) mmol/L Chloride 106 (96-108) mmol/L Carbon Dioxide 16 L (22-30) mmol/L BUN 7 L (8-23) mg/dl Creatinine 0.4 L (0.6-1.1) mg/dl Glucose 61 L (70-105) mg/dL Calcium 8.2 L (8.6-10.4) mg/dl AST 40 H (0-37) U/l ALT 39 (0-40) U/l Alkaline Phosphatase 98 (39-117) U/L Total Protein 5.7 L (5.9-8.4) gm/dL Albumin 2.8 L (3.2-5.2) gm/dL Triglycerides 109 (<150) mg/dl Calcium panel 04/26/17 Range/Units 04:10 Calcium 8.2 L (8.6-10.4) mg/dl Phosphorus 2.1 L (2.7-4.5) mg/dL Albumin 2.8 L (3.2-5.2) gm/dL Pituitary panel 04/26/17 Range/Units 04:10 Sodium 143 (133-145) mmol/L Potassium 3.0 L (3.3-5.1) mmol/L Chloride 106 (96-108) mmol/L Carbon Dioxide 16 L (22-30) mmol/L BUN 7 L (8-23) mg/dl Creatinine 0.4 L (0.6-1.1) mg/dl Glucose 61 L (70-105) mg/dL Calcium 8.2 L (8.6-10.4) mg/dl Adrenal panel 04/26/17 Range/Units 04:10 Sodium 143 (133-145) mmol/L Potassium 3.0 L (3.3-5.1) mmol/L Chloride 106 (96-108) mmol/L Carbon Dioxide 16 L (22-30) mmol/L BUN 7 L (8-23) mg/dl Creatinine 0.4 L (0.6-1.1) mg/dl Glucose 61 L (70-105) mg/dL Calcium 8.2 L (8.6-10.4) mg/dl Total Bilirubin 0.4 (0.0-1.0) mg/dL AST 40 H (0-37) U/l ALT 39 (0-40) U/l Alkaline Phosphatase 98 (39-117) U/L Total Protein 5.7 L (5.9-8.4) gm/dL Albumin 2.8 L (3.2-5.2) gm/dL Assessment and Plan (1) Perforation of small intestine Status: Acute Assessment and plan: We will continue present therapy Discontinue nasogastric tube Clear liquid diet Current Visit: Yes (2) Anxiety Status: Chronic Current Visit: No (3) Incontinence of feces Status: Chronic Current Visit: No (4) Cholelithiasis and acute cholecystitis without obstruction Status: Acute Current Visit: Yes - Time Spent With Patient Total time spent is greater than 50% in coordination of care (as documented) at patient's floor/unit and/or counseling patient:
[2017-04-26] MEDS ORDERED: POTASSIUM CHLORIDE 40 MEQ in DEXTROSE 5% IN WATER 500 ML IV ONE (14:30)
[2017-04-26] MEDS ORDERED: POTASSIUM CHLORIDE 40 MEQ in 0.9 % SODIUM CHLORIDE 500 ML IV ONE (14:30)
[2017-04-26] MEDS: NICOTINE 21 MG PATCH TOPICAL SCH (16:43)
[2017-04-26] MEDS ORDERED: POTASSIUM PHOSPHATE 40 MEQ in 0.9 % SODIUM CHLORIDE 500 ML IV ONE (18:30)
[2017-04-26] MEDS ORDERED: POTASSIUM PHOSPHATE 66 MEQ/15 ML VIAL IV ONE (18:51)
[2017-04-26] MEDS: LORazepam 2 MG/ML VIAL IV PRN (23:14)
[2017-04-27] MEDS: PIPERACILLIN SODIUM/TAZOBACTAM 3.375 GM in DEXTROSE 5% IN WATER 50 ML IV SCH ×2 (00:25→07:34)
[2017-04-27] MEDS: metroNIDAZOLE 500 MG/100 ML BAG IV SCH ×3 (01:00→12:07)
[2017-04-27] MEDS: ACETAMINOPHEN 1,000 MG/100 ML BOTTLE IV SCH ×2 (05:11→11:27)
[2017-04-27] MEDS: PANTOPRAZOLE 40 MG VIAL IV SCH (07:32)
[2017-04-27] MEDS: 0.9 % SODIUM CHLORIDE 1,000 ML IV SCH (07:34)
[2017-04-27] MEDS: NICOTINE 21 MG PATCH TOPICAL SCH (10:49)
--- NOTE | 2017-04-27 14:32 | Discharge Summary ---
Providers - Providers Patient information: Note initiated : 04/27/17 at 2:32 pm Service Date, if different from initiated Date: [] Patient: Stephanie Potter 61 y/o F admitted on 04/22/17 for Abdominal Pain/ Perforation of Small Intestine. Chief Complaint: [] Date of admission: 04/22/17 Discharge date: 04/27/17 Attending physician: Eamon Sheth Hospitalization Hospital course: 61-year-old female who presented to the emergency room with a 5 day history of lower abdominal pain. She had increasing nausea and vomiting. She also had dark urine with some epigastric pain, early satiety and anorexia. Her LFTs were also elevated along with her bilirubin. CT of the abdomen showed a 4.5 cm abscess along the mesenteric border of the small bowel loop in the left lower quadrant. A follow-up abdominal ultrasound showed acute cholecystitis with cholelithiasis. The patient was admitted and stabilized and underwent laparoscopic cholecystectomy with open laparotomy small bowel resection. She has had a uneventful postoperative course. Her diet has been advanced without difficulty. She is having flatus and bowel movements. Her incisions are healing nicely. She is presently stable and is discharged home to have follow- up in the office. Discharge diagnosis: Small bowel perforation with interloop abscess Secondary discharge diagnosis: Acute cholecystitis with cholelithiasis Reason for admission: Abdominal pain with nausea and vomiting Procedures: Laparoscopic cholecystectomy Open laparotomy with small bowel resection Pertinent studies/significant findings: CT of abdomen and pelvis with contrast Upper abdominal ultrasound Complications: None Exam Temp Pulse Resp BP Pulse Ox 97.9 F 65 20 104/66 94 04/27/17 12:00 04/27/17 04:00 04/27/17 12:00 04/27/17 12:00 04/27/17 12:00 - General physical appearance well developed, well nourished, no distress - Eyes PERRL, normal ocular movement - ENT normal pinna, normal nares, normal mucosa, no hearing loss, no congestion - Head Head exam IM: Present: atraumatic, normocephalic - Neck no masses, no bruits, trachea midline, no lymphadectomy, no venous distension - Cardiovascular Cardiovascular exam IM: Present: normal rate and rhythm - Respiratory normal expansion, normal respiratory effort, clear to percussion, clear to auscultation - Abdomen Abdomen: Present: soft, tender (Mild tenderness around operative sites; good active bowel sounds), bowel sounds Hernia: Present: none - Integumentary Present: no rash, no growths, no abnormal pigmentation - Neurologic Present: normal coordination, normal sensation - Musculoskeletal Present: normal gait, normal posture - Psychiatric Present: oriented to time, oriented to person, oriented to place, speech is normal, memory intact Discharge Plan - Patient/Caregiver Discharge Instructions Activity: increase activity as tolerated Diet: Regular Diet Additional Instructions: Leave dressings in place until you return to the office If you need dressing changes before your appointment date contact the office to be seen on an urgent basis Prescriptions: oxyCODONE HCL/ACETAMINOPHEN [Endocet 10-325 mg Tablet] 1 each PO Q4 #60 tab - Follow up Plan Follow up with: Eamon Sheth MD [Physician] - Michelle Otto DO [Primary Care Provider] - Disposition: Home, Self-Care Prognosis: Good Rehab Potential: Good I certify that the patient requires SNF services.: No Overall status at discharge: patient is not back to baseline Pending Studies Resuscitation Status Full Code Diet GI Soft/Transitional Start Laurie Apr 27 831 Metronidazole (Flagyl) 500 mg in 100 mls @ 100 mls/hr IV Q6H NATHAN Last Admin: 04/27/17 12:07 Dose: 100 mls/hr Infusion: 04/27/17 10:32 Dose: 0 mls/hr Admin: 04/27/17 05:13 Dose: 100 mls/hr Infusion: 04/27/17 02:00 Dose: 100 mls/hr Admin: 04/27/17 01:00 Dose: 100 mls/hr Infusion: 04/26/17 17:52 Dose: 100 mls/hr Admin: 04/26/17 16:52 Dose: 100 mls/hr Infusion: 04/26/17 12:35 Dose: 100 mls/hr Admin: 04/26/17 11:21 Dose: 100 mls/hr Infusion: 04/26/17 06:38 Dose: 100 mls/hr Admin: 04/26/17 05:38 Dose: 100 mls/hr Infusion: 04/26/17 01:33 Dose: 100 mls/hr Admin: 04/26/17 00:33 Dose: 100 mls/hr Infusion: 04/25/17 17:41 Dose: 100 mls/hr Admin: 04/25/17 16:41 Dose: 100 mls/hr Infusion: 04/25/17 13:50 Dose: 0 mls/hr Admin: 04/25/17 13:09 Dose: 100 mls/hr Infusion: 04/25/17 07:15 Dose: 0 mls/hr Admin: 04/25/17 06:15 Dose: 100 mls/hr Infusion: 04/25/17 00:23 Dose: 100 mls/hr Admin: 04/24/17 23:23 Dose: 100 mls/hr Infusion: 04/24/17 18:56 Dose: 100 mls/hr Admin: 04/24/17 17:56 Dose: 100 mls/hr Infusion: 04/24/17 13:43 Dose: 100 mls/hr Admin: 04/24/17 12:43 Dose: 100 mls/hr Infusion: 04/24/17 06:51 Dose: 0 mls/hr Admin: 04/24/17 05:51 Dose: 100 mls/hr Infusion: 04/24/17 02:33 Dose: 0 mls/hr Admin: 04/24/17 00:00 Dose: 100 mls/hr Infusion: 04/23/17 19:56 Dose: 0 mls/hr Admin: 04/23/17 18:19 Dose: 100 mls/hr Infusion: 04/23/17 15:14 Dose: 0 mls/hr Admin: 04/23/17 13:53 Dose: 100 mls/hr Piperacillin Sod/Tazobactam (Sod 3.375 gm/ Dextrose) 50 mls @ 100 mls/hr IV Q6H NATHAN Last Admin: 04/27/17 07:34 Dose: 100 mls/hr Infusion: 04/27/17 00:55 Dose: 100 mls/hr Admin: 04/27/17 00:25 Dose: 100 mls/hr Infusion: 04/26/17 20:38 Dose: 100 mls/hr Admin: 04/26/17 20:08 Dose: 100 mls/hr Admin: 04/26/17 18:13 Dose: Infusion: 04/26/17 14:37 Dose: 100 mls/hr Admin: 04/26/17 11:22 Dose: 100 mls/hr Infusion: 04/26/17 06:57 Dose: 100 mls/hr Admin: 04/26/17 00:33 Dose: 100 mls/hr Infusion: 04/25/17 20:30 Dose: 100 mls/hr Admin: 04/25/17 20:00 Dose: 100 mls/hr Infusion: 04/25/17 15:41 Dose: 100 mls/hr Admin: 04/25/17 15:11 Dose: 100 mls/hr Infusion: 04/25/17 08:46 Dose: 0 mls/hr Admin: 04/25/17 08:16 Dose: 100 mls/hr Infusion: 04/25/17 01:46 Dose: 100 mls/hr Admin: 04/25/17 01:16 Dose: 100 mls/hr Infusion: 04/24/17 20:34 Dose: 100 mls/hr Admin: 04/24/17 20:04 Dose: 100 mls/hr Infusion: 04/24/17 16:09 Dose: 100 mls/hr Admin: 04/24/17 15:39 Dose: 100 mls/hr Infusion: 04/24/17 07:48 Dose: 0 mls/hr Admin: 04/24/17 07:18 Dose: 100 mls/hr Infusion: 04/24/17 02:33 Dose: 0 mls/hr Admin: 04/24/17 01:16 Dose: 100 mls/hr Infusion: 04/23/17 22:47 Dose: 0 mls/hr Admin: 04/23/17 19:25 Dose: 100 mls/hr Infusion: 04/23/17 14:21 Dose: 0 mls/hr Admin: 04/23/17 13:51 Dose: 100 mls/hr Acetaminophen (Ofirmev) 1,000 mg in 100 mls @ 200 mls/hr IV Q6 NATHAN Last Infusion: 04/27/17 12:07 Dose: 0 mls/hr Admin: 04/27/17 11:27 Dose: 200 mls/hr Infusion: 04/27/17 05:41 Dose: 200 mls/hr Admin: 04/27/17 05:11 Dose: 200 mls/hr Infusion: 04/26/17 23:44 Dose: 200 mls/hr Admin: 04/26/17 23:14 Dose: 200 mls/hr Infusion: 04/26/17 18:35 Dose: 200 mls/hr Admin: 04/26/17 18:05 Dose: 200 mls/hr Infusion: 04/26/17 14:39 Dose: 200 mls/hr Admin: 04/26/17 12:32 Dose: 200 mls/hr Infusion: 04/26/17 07:54 Dose: 200 mls/hr Admin: 04/26/17 05:38 Dose: 200 mls/hr Infusion: 04/26/17 01:04 Dose: 200 mls/hr Admin: 04/26/17 00:34 Dose: 200 mls/hr Infusion: 04/25/17 19:22 Dose: 200 mls/hr Admin: 04/25/17 18:52 Dose: 200 mls/hr Infusion: 04/25/17 15:12 Dose: 0 mls/hr Admin: 04/25/17 12:20 Dose: 200 mls/hr Infusion: 04/25/17 05:48 Dose: 200 mls/hr Admin: 04/25/17 05:18 Dose: 200 mls/hr Infusion: 04/24/17 23:53 Dose: 200 mls/hr Admin: 04/24/17 23:23 Dose: 200 mls/hr Infusion: 04/24/17 17:52 Dose: 0 mls/hr Admin: 04/24/17 17:22 Dose: 200 mls/hr Infusion: 04/24/17 12:59 Dose: 0 mls/hr Admin: 04/24/17 12:44 Dose: 200 mls/hr Infusion: 04/24/17 06:22 Dose: 0 mls/hr Admin: 04/24/17 05:52 Dose: 200 mls/hr Infusion: 04/24/17 01:03 Dose: 0 mls/hr Admin: 04/24/17 00:10 Dose: 200 mls/hr Infusion: 04/23/17 22:47 Dose: 0 mls/hr Admin: 04/23/17 17:07 Dose: 200 mls/hr Lorazepam (Ativan) 1 mg IV Q6HP PRN PRN Reason: ANXIETY/SEDATION Last Admin: 04/26/17 23:14 Dose: 1 mg Admin: 04/25/17 19:50 Dose: 1 mg Morphine Sulfate (Morphine) 2 mg IV Q2HP PRN PRN Reason: Pain Last Admin: 04/26/17 18:10 Dose: 1 mg Admin: 04/26/17 07:02 Dose: 2 mg Nicotine (Nicoderm) 21 mg TOPICAL DAILY@1000 NATHAN Last Admin: 04/27/17 10:49 Dose: 21 mg Admin: 04/26/17 16:43 Dose: 21 mg Ondansetron HCl (Zofran) 4 mg IV Q4HP PRN PRN Reason: Nausea And Vomiting Last Admin: 04/26/17 06:45 Dose: 4 mg Admin: 04/25/17 05:30 Dose: 4 mg Admin: 04/24/17 17:06 Dose: 4 mg Admin: 04/24/17 04:44 Dose: 4 mg Pantoprazole Sodium (Protonix) 40 mg IV BIDAC [facility] Last Admin: 04/27/17 07:32 Dose: 40 mg Admin: 04/26/17 16:52 Dose: 40 mg Admin: 04/26/17 08:00 Dose: 40 mg Admin: 04/26/17 08:00 Dose: Admin: 04/25/17 16:41 Dose: 40 mg Admin: 04/25/17 08:27 Dose: 40 mg Admin: 04/24/17 17:22 Dose: 40 mg Admin: 04/24/17 07:55 Dose: 40 mg Admin: 04/23/17 17:07 Dose: 40 mg Shift Summary 04/27/17 03:30 Shift Summary by Evelio Perdomo up to BR w/FWW and SBA, gait slow d/t pain but steady, amb. barrientos x2 and up to chair yesterday, voiding dark brenda urine, had medium liquid/soft stool last night and 1 during the day, passing lots of flatus last night, MIV infusing well into RH along with ABO, received a partial 40meq KCL rider and a full 40meq K-phos rider last night, medicated with morphine just prior to shift change and ativan 1mg about 2300 for sleep, lap sites x5- jovanny covered w/ tegaderm noted to have scant serous drg- well approximated and intact, c/o nausea last night just prior to medium loose stool, no zofran given, denied nausea with clear liquid diet, pt hopeful to d/c home today with family Initialized on 04/27/17 03:30 - END OF NOTE
--- NOTE | 2017-05-01 14:51 | Operative Note ---
DATE OF OPERATION: 04/23/2017 PREOPERATIVE DIAGNOSES: Cholelithiasis with cholecystitis and small bowel perforation with abscess. POSTOPERATIVE DIAGNOSES: Cholelithiasis with cholecystitis and necrosis of mesenteric border of small bowel with perforation and contained interloop abscess. PROCEDURE: Laparoscopic cholecystectomy, diagnostic pelvic laparoscopy, open laparotomy with small bowel resection. SURGEON: Eamon Sheth M.D. FINDINGS: Acute and chronic cholecystitis, large perforation of a single loop of mid small bowel with phlegmon and a contained interloop abscess. DESCRIPTION: Under general anesthesia, the patient's abdomen was prepped and draped in a sterile field. Supraumbilical incision was made. Veress needle was inserted uneventfully. Abdomen was insufflated with 3 liters of CO2. A 12 mm port was placed. Laparoscope was placed. Under videoscopic guidance the gallbladder was visualized. It showed acute and chronic inflammation with adhesions from the surrounding omentum. Under videoscopic guidance, a 12 mm port and two 5 mm ports were placed in the right subcostal region. The patient was positioned in reverse Trendelenburg position and rotated to the left. Using a Kitner dissector, the adherent omentum was bluntly dissected off the dome of the gallbladder. Once this was done, I was able to grasp the gallbladder and using [place] dissectors the rest of the omentum was from the gallbladder. The gallbladder was then positioned. Dissection was carried out, and the cystic duct was isolated. It was followed back to the gallbladder. The cystic artery branch was short, and it was followed on to the wall of the gallbladder. The cystic artery branch was clipped with three clips and divided. The cystic duct was then placed on stretch, and it was clipped with five clips and divided. The gallbladder was then from the infrahepatic bed using electrocautery. It was placed in an EndoCatch device and retrieved. Hemostasis in the bed was achieved with electrocautery. There was no significant blood loss, and there was no evidence of leak. Attention was then turned to the pelvis. The scope was turned to the pelvis. The patient was positioned in deep Trendelenburg position and rotated to the right. Under videoscopic guidance, a 5 mm port was placed in the suprapubic midline and a 12 mm port was placed in the left lower quadrant. With blunt dissection, I was able to isolate the inflamed tissue in the left lower quadrant. It contained multiple loops of small bowel and colon with a major phlegmon. It was felt that it would be best to approach this open. The ports were removed, and the patient was placed in a supine position. A midline incision was made. Upon entering the abdomen, the inflamed phlegmon was noted. Using blunt dissection, it was from the sigmoid colon. The loops of small bowel were then delivered into the operative field. Using blunt dissection, the loops of small bowel were and an abscess cavity was entered. This was irrigated and suctioned. The abscess cavity was at the base where there was necrosis of the mesenteric border of a loop of small bowel. There was perforation into the small bowel mesentery which then dissected into the peritoneum leading to a contained interloop abscess. The rest of the bowel was inspected and appeared to be unremarkable. The bowel was transected using Contour stapler proximal and distal to the perforated segment. The mesentery was clamped and divided. The vessels of the mesentery were tied with 2-0 silk suture. A movn-mc-hdua anastomosis between the transected segments was carried out using SARA 55 and a TA 60 stapler. The staple lines were oversewn using running 2-0 Prolene. Mesenteric defect was closed with 2-0 Monocryl. Irrigation of the peritoneum was carried out. The bowel was returned to the peritoneal cavity. Fascia and peritoneum were closed using running #1 Prolene. Subcutaneous tissue was irrigated and closed with 2-0 Monocryl. The skin was closed with anton. Anton were also used to close the skin incisions for the cholecystectomy. Dressings were placed. The patient was awakened from anesthesia uneventfully, transferred to a bed, and taken to the postanesthetic care unit in stable, satisfactory condition. LCS:kalpesh Job ID: [id number] Doc ID: [id number] Eamon Sheth M.D.
== END 2017-04-27 15:10 | disposition home or self-care (01) | DRG 329 ==
LOC: ED 23:51 → MEDSUR 04-22 03:43
PROVIDERS: ADMIT Family Medicine Adult Medicine; ATTEND Family Medicine Adult Medicine
PROC: DIAGSCO (2017-04-23 07:58)